=== PATIENT | female | born 1985 | race Two or more races ===

== ENCOUNTER → 2024-12-14 | Emergency (ER) | payer BC ==
[~2024-12-14] VITALS: Ht 160 cm; Wt 59.0 kg
[~2024-12-14] MED LIST: ADERALL; FLUCONAZOLE150 MG PO; hydrOXYzine PAMOATE 25 MG CAPSULE PO ONE
[2024-12-14 20:18] LABS: HEMATOCRIT 37.5 % (36.0-45.00); HEMOGLOBIN 12.9 g/dL (12.0-15.00); MEAN CELL VOLUME 85.7 fL (80.00-100.00); MEAN CORPUSCULAR HEMOGLOBIN 29.5 pg (27.00-32.0); MEAN CORPUSCULAR HGB CONC 34.4 g/dl (32.0-36.0); PLATELET COUNT 240 K/uL (150-450); RED BLOOD COUNT 4.38 M/uL (4.00-6.00); RED CELL DISTRIBUTION WIDTH 14.6 % (11.5-14.5)
[2024-12-14 20:42] LABS: ALBUMIN 4.2 gm/dL (3.4-5.0); BILIRUBIN TOTAL 0.76 mg/dL (0.3-1.2); CALCIUM 9.4 mg/dL (8.5-10.1); CREATININE SERUM 0.53 mg/dL (0.55-1.02); GFR 129.1; GLOBULINA 3.7 G/DL (2.4-3.5); POTASSIUM 4.4 mEq/L (3.5-5.1); TOTAL PROTEIN 7.9 gm/dL (6.4-8.2)
== END | disposition home or self-care (01) ==
LOC: ER 18:06
PROVIDERS: General Practice
DX: F41.9 Anxiety disorder, unspecified (principal); R53.81 Other malaise